=== PATIENT | male | born 1960 | race Caucasian/White ===

== ENCOUNTER 2018-03-01 12:29 | Emergency (ER) | payer BC ==
[2018-03-01 12:38] VITALS: BP 131/86; PULSE 100; RESP 16; TEMP 98.7
--- NOTE | 2018-03-01 13:16 | XR ---
EXAMINATION TYPE: XR lumbar spine 2 or 3V DATE OF EXAM: 03/01/2018 CLINICAL HISTORY: pain TECHNIQUE: Three views of the lumbar spine are submitted. COMPARISON: None. FINDINGS: There are 5 lumbar type vertebral bodies identified. The lumbar spine shows satisfactory alignment w ithout evidence of acute fracture or dislocation. Vertebral body heights are within normal limits. Moderate degenerative disc space narrowing. The overlying soft tissue appears unremarkable. IMPRESSION: No acute fracture or dislocation is seen in the lumbar spine. ICD 10 NO FRACTURE, INITIAL EVALUATION
--- NOTE | 2018-03-01 13:20 | XR ---
EXAMINATION TYPE: XR thoracic spine 2V DATE OF EXAM: 03/01/2018 CLINICAL HISTORY: pain TECHNIQUE: Frontal, lateral, and swimmer's view of thoracic spine are obtained. COMPARISON: None. FINDINGS: Thoracic spine show satisfactory alignment without evidence of acute fracture or dislocatio n. Vertebral body heights are preserved. Moderate multilevel degenerative disc space narrowing and s pondylosis. Visualized ribs are unremarkable. IMPRESSION: No acute fracture or dislocation is seen in the thoracic spine. ICD 10 NO FRACTURE, INIT IAL EVALUATION
--- NOTE | 2018-03-01 13:22 | XR ---
EXAMINATION TYPE: XR ribs LT DATE OF EXAM: 03/01/2018 CLINICAL HISTORY: Pain, Fall Four views of the ribs fail demonstrate evidence for displaced rib fracture or secondary sign of rib fracture. Visualized lungs are clear. No evidence for pneumothorax. IMPRESSION: No displaced rib fractures seen. ICD 10 NO FRACTURE, INITIAL EVALUATION
--- NOTE | 2018-03-01 14:00 | ED ---
General Adult HPI - General Chief complaint: Back Pain/Injury Stated complaint: Fall Time Seen by Provider: 03/01/18 12:40 Source: patient, RN notes reviewed Mode of arrival: ambulatory Limitations: no limitations - History of Present Illness Initial comments: 49-year-old male presents to the emergency department for a chief complaint of left lower back pain times one day. Yesterday patient stepped backwards while on his boat and fell into the engine well hitting his left side back. Patient states it is painful to go from a sitting to standing position. Patient has not tried any pain pills or anti-inflammatories. Patient has iced it. Patient denies pain when twisting. Patient denies any bladder or bowel changes. No IV drug use. No pain in the neck. Patient did not hit his head or sustain any other injuries. No loss of consciousness. Patient has no other complaints at this time including shortness of breath, chest pain, abdominal pain, nausea or vomiting, headache, or visual changes. - Related Data Previous Rx's Medication Instructions Recorded Acetaminophen [Tylenol] 500 mg PO Q4-6H PRN #20 tab 03/01/18 Cyclobenzaprine [Flexeril] 5 mg PO TID PRN #9 tablet 03/01/18 Ibuprofen [Motrin] 600 mg PO Q8HR PRN #20 tab 03/01/18 Allergies Allergy/AdvReac Type Severity Reaction Status Date / Time meperidine [From Demerol] Allergy Confusion Verified 03/01/18 12:38 Review of Systems ROS Statement: Those systems with pertinent positive or pertinent negative responses have been documented in the HPI. ROS Other: All systems not noted in ROS Statement are negative. Past Medical History Past Medical History: No Reported History History of Any Multi-Drug Resistant Organisms: None Reported Past Surgical History: Cholecystectomy, Tonsillectomy Past Psychological History: No Psychological Hx Reported Smoking Status: Never smoker Past Alcohol Use History: Daily Past Drug Use History: None Reported General Exam Limitations: no limitations General appearance: alert, in no apparent distress Head exam: Present: atraumatic, normocephalic, normal inspection Neck exam: Present: normal inspection, full ROM. Absent: tenderness, meningismus, lymphadenopathy Respiratory exam: Present: normal lung sounds bilaterally. Absent: respiratory distress, wheezes, rales, rhonchi, stridor Cardiovascular Exam: Present: regular rate, normal rhythm, normal heart sounds. Absent: systolic murmur, diastolic murmur, rubs, gallop, clicks Back exam: Present: tenderness (Patient has left-sided lower back tenderness over the ribs. No tenderness on the lumbar or thoracic spine.). Absent: full ROM (Patient has about 20 of flexion. He is able to rotate his lower back fully.), CVA tenderness (R), CVA tenderness (L), muscle spasm, vertebral tenderness, other (Small contusion noted on the left lower back. No lacerations or breaks in the skin.) Course Vital Signs 03/01/18 12:34 Temperature 98.7 F Pulse Rate 100 Respiratory 16 Rate Blood Pressure 131/86 O2 Sat by Pulse 97 Oximetry Medical Decision Making - Medical Decision Making 57-year-old male presents to the emergency department for a chief complaint of left lower back pain times one day. Patient fell into his engine well on his boat yesterday hitting his left lower back. Patient denies any loss of consciousness or other injuries. On exam patient has limited flexion of the lumbar spine. He does have full rotation. Tenderness to the left lower ribs. No tenderness to the thoracic or lumbar spine. No pain in the neck. Neurovascular intact in lower extremities bilaterally. No bladder or bowel changes. No evidence for displaced rib fracture. No acute fracture or dislocation seen in the lumbar spine. No acute fracture-dislocation thoracic spine as well. Patient was educated that at this point no rib fracture but may have an occult fracture. Likely a rib contusion. If pain is still severe in 7- 10 days he may need repeat x-rays which she can follow-up with primary care for. He will be given a prescription of Tylenol and Motrin in the emergency department. He will also be given Flexeril as she states sometimes the pain is crampy and feels like a muscle spasm. He was educated not to drive or operate machinery while taking Flexeril. He will return if he has any worsening symptoms. Return parameters were discussed. Otherwise he will follow-up with primary care. Disposition Clinical Impression: Left-sided back pain Disposition: HOME SELF-CARE Condition: Good Instructions: Acute Low Back Pain (ED), Rib Contusion (ED) Additional Instructions: Please take Tylenol for pain relief. If needed you may take Motrin if it does not upset your stomach. Take the Motrin with food. Take Flexeril as needed for muscle spasm. Do not drive or operate machinery with Flexeril. Ice the area and do gentle stretching. Return to the emergency department if you've any worsening symptoms. Otherwise follow-up with your primary care provider in one to 2 days. Prescriptions: Acetaminophen [Tylenol] 500 mg PO Q4-6H PRN #20 tab PRN Reason: Pain Cyclobenzaprine [Flexeril] 5 mg PO TID PRN #9 tablet PRN Reason: Pain Ibuprofen [Motrin] 600 mg PO Q8HR PRN #20 tab PRN Reason: Pain Is patient prescribed a controlled substance at d/c from ED?: No Referrals: Isra Menednez MD [Primary Care Provider] - 1-2 days Time of Disposition: 14:00
== END 2018-03-01 14:13 | disposition home or self-care (01) ==
LOC: EC 12:29
DX: M54.5 Low back pain (principal); Z88.6 Allergy status to analgesic agent; W18.09XA Striking against other object with subsequent fall, initial encounter; Y92.814 Boat as the place of occurrence of the external cause
CPT/HCPCS: 72070; 72100; 99283